=== PATIENT | male | born 1955 | race Caucasian/White ===

== ENCOUNTER → 2021-11-04 | Outpatient (CLI) | payer MEDICARE ==
[~2021-11-04] MED LIST: AMLODIPINE BESYL5 MG PO; HEARTBURN RELIE20 MG PO; HYDROCODONE-AC1 EAC1 PO; K-TAB10 MEQ PO; LASIX20 MG PO; LOPRESSOR25 MG NG; METOPROLOL SUCC50 M1 PO; NATURE'S BLEND F1 MG PO; PRAVASTATIN SOD20 MG PO; PREDNISONE10 MG PO; VITAMIN D350 MC3 PO
== END | disposition home or self-care (01) ==
LOC: RAD 13:27
PROVIDERS: ATTEND Family Medicine
DX: S22.32XA Fracture of one rib, left side, initial encounter for closed fracture (principal); X58.XXXA Exposure to other specified factors, initial encounter; Y93.89 Activity, other specified; Y92.89 Other specified places as the place of occurrence of the external cause; Y99.8 Other external cause status

== ENCOUNTER → 2022-09-16 | Outpatient (CLI) | payer OTHER, MEDICAID ==
[~2022-09-16] MED LIST changes: +BUDESONIDE0.5 MG/2 M NEB; +CIPROFLOXACIN500 M4 PO; +Ipratropium Brom3 ML NEB; +MUCINEX ER600 MG PO; +PANTOPRAZOLE SO40 MG PO; +PERFOROMIS20 MCG/2 M NEB; +PREDNISONE5 MG PO; +PROPOFOL10 MG/1 ML IV; +Protonix IV; +SOLU-MEDRO40 MG/1 ML IV; +ST. JOSEPH ASPI81 MG PO; +VITAMIN E180 M1 PO; +ZITHROMAX TRI-500 M1 PO
== END | disposition home or self-care (01) ==
LOC: RAD 14:54
PROVIDERS: ATTEND Internal Medicine
DX: M16.12 Unilateral primary osteoarthritis, left hip (principal); M47.817 Spondylosis without myelopathy or radiculopathy, lumbosacral region

== ENCOUNTER → 2023-03-15 | Outpatient (CLI) | payer OTHER, MEDICAID | END | disposition home or self-care (01) | LOC: CT 10:53 | PROVIDERS: ATTEND Internal Medicine Critical Care Medicine | DX: J44.9 Chronic obstructive pulmonary disease, unspecified (principal); Z87.891 Personal history of nicotine dependence ==

== ENCOUNTER 2023-04-05 17:31 | Inpatient (IN) | payer OTHER ==
[~2023-04-05] VITALS: Ht 167.6 cm; Wt 96.2 kg
[2023-04-05 17:45] VITALS: BP 158/73
[2023-04-05 17:46] LABS: HEMATOCRIT 45.2 % (42.0-52.0); MEAN CELL VOLUME 92.4 fl (80.0-94.0); MEAN CORPUSCULAR HGB 27.4 pg (27.0-31.0); MEAN CORPUSCULAR HGB CONC 29.6 g/dl (33.0-37.0); MEAN PLATELET VOLUME 9.2 fl (9.6-12.3); PLATELET COUNT AUTOMATED 229 10*3/uL (130-400); RED BLOOD COUNT 4.89 10*6/uL (4.50-5.90); RED CELL DISTRI WIDTH 14.6 % (0-14.5)
[2023-04-05 17:48] LABS: MANUAL DIFF REFLEX YES
[2023-04-05 17:57] LABS: ACT PARTIAL THROMBO TIME 28.8 SECONDS (20.0-32.1)
[2023-04-05 18:07] LABS: BASOPHILS 1 % (0-1); PLATELET SUFFICIENCY NORMAL (NORMAL); TOTAL CELLS COUNTED 100 #CELLS
[2023-04-05 18:08] LABS: STOMATOCYTE FEW
[2023-04-05 18:09] LABS: ALKALINE PHOSPHATASE 89 U/L (46-116); BUN 15 mg/dl (9-23); CHLORIDE 98 mmol/L (98-107); LIPASE 27 U/L (12-53); POTASSIUM 4.8 mmol/L (3.4-5.1); SGPT/ALT 23 U/L (5-49); TOTAL PROTEIN 7.5 gm/dL (6.0-8.0)
[2023-04-05] MEDS ORDERED: MULTIVITAMIN1 EACH PO (19:09)
[2023-04-05] MEDS ORDERED: FOLIC ACID0.8 M1 PO (19:15)
[2023-04-05] MEDS ORDERED: VITAMIN E100 UNI1 PO (19:16)
[2023-04-05] MEDS ORDERED: DICYCLOMINE HYD20 MG PO (19:17)
[2023-04-05] MEDS ORDERED: ASPIRIN81 M1 PO (19:17)
[2023-04-05 19:35] VITALS: BP 154/100
[2023-04-05 20:00] VITALS: BP 153/94
[2023-04-06] VITALS (10 sets, daily range): BP systolic 109–154; BP diastolic 44–78
[2023-04-06 04:12] LABS: HEMATOCRIT 41.1 % (42.0-52.0); MEAN CELL VOLUME 91.9 fl (80.0-94.0); MEAN CORPUSCULAR HGB CONC 30.4 g/dl (33.0-37.0); MEAN PLATELET VOLUME 9.7 fl (9.6-12.3); PLATELET COUNT AUTOMATED 194 10*3/uL (130-400); RED BLOOD COUNT 4.47 10*6/uL (4.50-5.90); RED CELL DISTRI WIDTH 14.6 % (0-14.5); WHITE BLOOD COUNT 9.8 10*3/uL (4.8-10.8)
[2023-04-06 04:13] LABS: MANUAL DIFF REFLEX YES
[2023-04-06 04:43] LABS: ALKALINE PHOSPHATASE 73 U/L (46-116); BUN 15 mg/dl (9-23); CHLORIDE 101 mmol/L (98-107); CHOLESTEROL 263 mg/dL (<200); LDL CHOLESTEROL 187 mg/dL (9-159); POTASSIUM 5.2 mmol/L (3.4-5.1); SGPT/ALT 23 U/L (5-49); TOTAL PROTEIN 6.5 gm/dL (6.0-8.0); TRIGLYCERIDES 102 mg/dl (<150)
[2023-04-06 04:48] LABS: PLATELET SUFFICIENCY NORMAL (NORMAL); TOTAL CELLS COUNTED 100 #CELLS
[2023-04-07] VITALS: BP 134/57
[2023-04-07 06:31] LABS: BUN 20 mg/dl (9-23); CHLORIDE 100 mmol/L (98-107); POTASSIUM 4.8 mmol/L (3.4-5.1)
[2023-04-07 06:42] LABS: BASO % 0.1 % (0.0-1.0); EOS % 0.1 % (1.0-4.0); HEMATOCRIT 37.8 % (42.0-52.0); LYMPH # 0.4 10*3/uL (1.3-4.4); LYMPH % 2.8 % (27.0-41.0); MEAN CELL VOLUME 93.1 fl (80.0-94.0); MEAN CORPUSCULAR HGB 27.6 pg (27.0-31.0); MEAN CORPUSCULAR HGB CONC 29.6 g/dl (33.0-37.0); MEAN PLATELET VOLUME 9.9 fl (9.6-12.3); MONO # 0.9 10*3/uL (0.1-1.0); MONO % 7.1 % (3.0-9.0); NEUT # 11.9 10*3/uL (2.3-7.9); NEUT % 89.4 % (47.0-73.0); PLATELET COUNT AUTOMATED 223 10*3/uL (130-400); RED BLOOD COUNT 4.06 10*6/uL (4.50-5.90); RED CELL DISTRI WIDTH 14.7 % (0-14.5); WHITE BLOOD COUNT 13.3 10*3/uL (4.8-10.8)
[2023-04-07 08:00] VITALS: BP 156/66
[2023-04-07 12:00] VITALS: BP 168/74
[2023-04-07 16:00] VITALS: BP 169/67
[2023-04-07 20:00] VITALS: BP 172/77
[2023-04-08] VITALS: BP 137/68
[2023-04-08 06:46] LABS: BASO % 0.1 % (0.0-1.0); LYMPH # 0.4 10*3/uL (1.3-4.4); LYMPH % 3.2 % (27.0-41.0); MEAN CELL VOLUME 93.4 fl (80.0-94.0); MEAN CORPUSCULAR HGB 27.6 pg (27.0-31.0); MEAN CORPUSCULAR HGB CONC 29.5 g/dl (33.0-37.0); MEAN PLATELET VOLUME 9.5 fl (9.6-12.3); MONO % 7.5 % (3.0-9.0); NEUT # 12.1 10*3/uL (2.3-7.9); NEUT % 88.7 % (47.0-73.0); PLATELET COUNT AUTOMATED 245 10*3/uL (130-400); RED BLOOD COUNT 4.39 10*6/uL (4.50-5.90); WHITE BLOOD COUNT 13.7 10*3/uL (4.8-10.8)
[2023-04-08 07:14] LABS: BUN 20 mg/dl (9-23); CHLORIDE 96 mmol/L (98-107); POTASSIUM 4.9 mmol/L (3.4-5.1)
[2023-04-08 08:00] VITALS: BP 141/87
[2023-04-08 12:00] VITALS: BP 103/67
[2023-04-08 16:00] VITALS: BP 132/99
[2023-04-08 20:00] VITALS: BP 149/79
[2023-04-09 00:33] VITALS: BP 148/84
[2023-04-09 06:11] LABS: BUN 21 mg/dl (9-23); CHLORIDE 95 mmol/L (98-107); POTASSIUM 5.1 mmol/L (3.4-5.1)
[2023-04-09 06:16] LABS: BASO % 0.2 % (0.0-1.0); EOS % 0.1 % (1.0-4.0); HEMATOCRIT 41.1 % (42.0-52.0); LYMPH # 0.6 10*3/uL (1.3-4.4); LYMPH % 4.4 % (27.0-41.0); MEAN CELL VOLUME 91.3 fl (80.0-94.0); MEAN CORPUSCULAR HGB 27.3 pg (27.0-31.0); MEAN CORPUSCULAR HGB CONC 29.9 g/dl (33.0-37.0); MEAN PLATELET VOLUME 10.1 fl (9.6-12.3); MONO # 1.2 10*3/uL (0.1-1.0); MONO % 9.1 % (3.0-9.0); NEUT # 10.8 10*3/uL (2.3-7.9); NEUT % 85.6 % (47.0-73.0); PLATELET COUNT AUTOMATED 270 10*3/uL (130-400); RED CELL DISTRI WIDTH 14.9 % (0-14.5); WHITE BLOOD COUNT 12.7 10*3/uL (4.8-10.8)
[2023-04-09 08:00] VITALS: BP 179/80
[2023-04-09 16:00] VITALS: BP 152/67
[2023-04-09 20:29] VITALS: BP 151/73
[2023-04-10] VITALS: BP 132/53
[2023-04-10 06:51] LABS: BASO % 0.1 % (0.0-1.0); EOS % 0.1 % (1.0-4.0); HEMATOCRIT 44.5 % (42.0-52.0); LYMPH # 0.7 10*3/uL (1.3-4.4); LYMPH % 6.7 % (27.0-41.0); MEAN CELL VOLUME 93.3 fl (80.0-94.0); MEAN CORPUSCULAR HGB 27.9 pg (27.0-31.0); MEAN CORPUSCULAR HGB CONC 29.9 g/dl (33.0-37.0); MEAN PLATELET VOLUME 9.9 fl (9.6-12.3); MONO # 1.4 10*3/uL (0.1-1.0); MONO % 12.3 % (3.0-9.0); NEUT # 8.8 10*3/uL (2.3-7.9); NEUT % 80.4 % (47.0-73.0); PLATELET COUNT AUTOMATED 291 10*3/uL (130-400); RED BLOOD COUNT 4.77 10*6/uL (4.50-5.90); RED CELL DISTRI WIDTH 14.6 % (0-14.5)
[2023-04-10 07:12] LABS: BUN 20 mg/dl (9-23); CHLORIDE 99 mmol/L (98-107); POTASSIUM 4.5 mmol/L (3.4-5.1)
[2023-04-10 08:00] VITALS: BP 142/80
[2023-04-10 12:00] VITALS: BP 138/72
[2023-04-10 16:00] VITALS: BP 146/79
[2023-04-10 20:00] VITALS: BP 150/80
[2023-04-11] VITALS: BP 146/76
[2023-04-11 06:45] LABS: BASO % 0.1 % (0.0-1.0); EOS % 0.1 % (1.0-4.0); HEMATOCRIT 43.5 % (42.0-52.0); LYMPH # 0.9 10*3/uL (1.3-4.4); LYMPH % 6.8 % (27.0-41.0); MEAN CELL VOLUME 91.8 fl (80.0-94.0); MEAN CORPUSCULAR HGB 27.2 pg (27.0-31.0); MEAN CORPUSCULAR HGB CONC 29.7 g/dl (33.0-37.0); MEAN PLATELET VOLUME 9.8 fl (9.6-12.3); MONO # 1.4 10*3/uL (0.1-1.0); MONO % 10.4 % (3.0-9.0); NEUT # 10.6 10*3/uL (2.3-7.9); NEUT % 82.1 % (47.0-73.0); PLATELET COUNT AUTOMATED 322 10*3/uL (130-400); RED BLOOD COUNT 4.74 10*6/uL (4.50-5.90); RED CELL DISTRI WIDTH 14.4 % (0-14.5)
[2023-04-11 07:08] LABS: BUN 23 mg/dl (9-23); CHLORIDE 101 mmol/L (98-107); POTASSIUM 4.6 mmol/L (3.4-5.1)
[2023-04-11 08:00] VITALS: BP 135/70
[2023-04-11] MEDS ORDERED: ATORVASTATIN CA40 M1 PO ×3 (11:38→15:06)
[2023-04-11] MEDS ORDERED: LEVOFLOXACIN750 M2 PO ×3 (11:38→15:06)
[2023-04-11] MEDS ORDERED: MUCUS RELIEF600 MG PO ×3 (11:38→15:06)
[2023-04-11] MEDS ORDERED: ACETAZOLAMIDE250 MG PO ×3 (11:38→15:06)
[2023-04-11] MEDS ORDERED: PREDNISONE10 MG PO ×3 (11:38→15:06)
[2023-04-11 12:00] VITALS: BP 101/64
== END 2023-04-11 15:05 | disposition home or self-care (01) | DRG 871 ==
LOC: ED 17:31 → EDHOLD 18:34 → 4E 18:34
PROVIDERS: Emergency Medicine; Internal Medicine; Registered Nurse; Student in an Organized Health Care Education/Training Program; ADMIT Internal Medicine; ATTEND Internal Medicine
PROC: 5A09457 Assistance with Respiratory Ventilation, 24-96 Consecutive Hours, Continuous Positive Airway Pressure (ICD-10-PCS; 2023-04-05)
PROC: XW033E5 Introduction of Remdesivir Anti-infective into Peripheral Vein, Percutaneous Approach, New Technology Group 5 (ICD-10-PCS; principal; 2023-04-06)
PROC: 5A09357 Assistance with Respiratory Ventilation, Less than 24 Consecutive Hours, Continuous Positive Airway Pressure (ICD-10-PCS; 2023-04-08)
PROC: 5A09357 Assistance with Respiratory Ventilation, Less than 24 Consecutive Hours, Continuous Positive Airway Pressure (ICD-10-PCS; 2023-04-09)
PROC: 5A09357 Assistance with Respiratory Ventilation, Less than 24 Consecutive Hours, Continuous Positive Airway Pressure (ICD-10-PCS; 2023-04-10)
DX: A41.9 Sepsis, unspecified organism (principal); J15.69 Pneumonia due to other Gram-negative bacteria; J96.21 Acute and chronic respiratory failure with hypoxia; U07.1 COVID-19; I50.32 Chronic diastolic (congestive) heart failure; J44.0 Chronic obstructive pulmonary disease with (acute) lower respiratory infection; J44.1 Chronic obstructive pulmonary disease with (acute) exacerbation; E07.1 Dyshormogenetic goiter; R65.20 Severe sepsis without septic shock; K21.9 Gastro-esophageal reflux disease without esophagitis; D64.9 Anemia, unspecified; E05.90 Thyrotoxicosis, unspecified without thyrotoxic crisis or storm; E87.5 Hyperkalemia; E11.65 Type 2 diabetes mellitus with hyperglycemia; K76.0 Fatty (change of) liver, not elsewhere classified; Z88.6 Allergy status to analgesic agent; Z88.8 Allergy status to other drugs, medicaments and biological substances; Z82.49 Family history of ischemic heart disease and other diseases of the circulatory system; Z86.73 Personal history of transient ischemic attack (TIA), and cerebral infarction without residual deficits

== ENCOUNTER 2023-08-11 13:32 | Emergency (ER) | payer OTHER ==
[~2023-08-11] VITALS: Ht 167.6 cm; Wt 95.3 kg
[~2023-08-11 13:32] MED LIST changes: +ACETAZOLAMIDE250 MG PO; +AMOX-CLAV 875-1 EACH PO; +ASPIRIN81 M1 PO; +ATORVASTATIN CA40 M1 PO; +ATORVASTATIN CA80 M1 PO; +DICYCLOMINE HYD20 MG PO; +FOLIC ACID0.8 M1 PO; +LEVOFLOXACIN750 M2 PO; +MIRTAZAPINE15 M2 PO; +MUCUS RELIEF600 MG PO; +MULTIVITAMIN1 EACH PO; +NAMENDA-5 PO; +QUETIAPINE FUMA50 M1 PO; +RIVASTIGMINE1 EACH T; +TAMSULOSIN HCL0.4 MG PO; +TORSEMIDE20 MG PO; +VITAMIN E100 UNI1 PO
[2023-08-11] MEDS ORDERED: Activated Charcoal 120 ML BOT PO ONE (13:40)
[2023-08-11 13:54] LABS: HEMATOCRIT 41.6 % (42.0-52.0); MANUAL DIFF REFLEX YES; MEAN CELL VOLUME 93.3 fl (80.0-94.0); MEAN CORPUSCULAR HGB 28.3 pg (27.0-31.0); MEAN CORPUSCULAR HGB CONC 30.3 g/dl (33.0-37.0); MEAN PLATELET VOLUME 9.4 fl (9.6-12.3); PLATELET COUNT AUTOMATED 269 10*3/uL (130-400); RED BLOOD COUNT 4.46 10*6/uL (4.50-5.90); RED CELL DISTRI WIDTH 15.8 % (0-14.5); WHITE BLOOD COUNT 13.2 10*3/uL (4.8-10.8)
[2023-08-11 14:17] LABS: ACT PARTIAL THROMBO TIME 27.2 SECONDS (20.0-32.1); ALKALINE PHOSPHATASE 131 U/L (46-116); BUN 9 mg/dl (9-23); CHLORIDE 97 mmol/L (98-107); LIPASE 35 U/L (12-53); POTASSIUM 3.7 mmol/L (3.4-5.1); SGPT/ALT 23 U/L (5-49); TOTAL PROTEIN 7.2 gm/dL (6.0-8.0)
[2023-08-11 14:26] LABS: BASOPHILS 3 % (0-1); PLATELET SUFFICIENCY NORMAL (NORMAL); TOTAL CELLS COUNTED 100 #CELLS
[2023-08-11 14:27] LABS: OVALOCYTES FEW
[2023-08-11] MEDS ORDERED: SODIUM CHLORIDE 0.9% 1,000 ML IV ONE (14:30)
[2023-08-11 16:30] LABS: BILIRUBIN Negative (Negative); BLOOD Negative (Negative); CLARITY Cloudy (Clear); COLOR Yellow (Yellow); GLUCOSE Negative (Negative); KETONE Negative (Negative); LEUKO ESTERASE 2+ (Negative); NITRITE Negative (Negative); PH 5.5 (4.5-8.0); SPECIFIC GRAVITY >= 1.030 (1.001-1.030)
[2023-08-11] MEDS ORDERED: MEMANTINE HCL5 MG PO (16:32)
[2023-08-11] MEDS ORDERED: MIRTAZAPINE15 M1 SL (16:33)
[2023-08-11] MEDS ORDERED: HYDROCODONE-AC1 EAC1 PO (16:33)
[2023-08-11 16:39] LABS: URINE AMPHETAMINES Negative (1000ng/ml); URINE BARBITURATES Negative (200ng/ml); URINE BENZODIAZEPINES Negative (200ng/ml); URINE CANNABINOIDS (THC) Negative (50ng/ml); URINE COCAINE Negative (300ng/ml); URINE METHADONE Negative (300ng/ml); URINE OPIATES Positive (300ng/ml); URINE PHENCYCLIDINE Negative (25ng/ml)
[2023-08-11 16:41] LABS: BACTERIA 1+; RBC 0-2 rbc/hpf (0-2); WBC 21-30 wbc/hpf (0-5)
[2023-08-11] MEDS ORDERED: Albuterol Sulf/Ipratropium 3 ML VIAL NEB ONE (19:20)
== END 2023-08-11 22:01 | disposition home or self-care (01) ==
LOC: ED 13:32
PROVIDERS: Internal Medicine
DX: T39.1X1A Poisoning by 4-Aminophenol derivatives, accidental (unintentional), initial encounter (principal); R42 Dizziness and giddiness; J44.9 Chronic obstructive pulmonary disease, unspecified; Z99.81 Dependence on supplemental oxygen; Z88.8 Allergy status to other drugs, medicaments and biological substances; Z79.899 Other long term (current) drug therapy; Z79.2 Long term (current) use of antibiotics; Z79.82 Long term (current) use of aspirin; Z98.890 Other specified postprocedural states; Z90.89 Acquired absence of other organs; Z87.891 Personal history of nicotine dependence; Y92.89 Other specified places as the place of occurrence of the external cause

== ENCOUNTER 2024-01-01 20:00 | Emergency (ER) | payer OTHER ==
[~2024-01-01] VITALS: Wt 108.6 kg
[~2024-01-01 20:00] MED LIST changes: +MEMANTINE HCL5 MG PO; +MIRTAZAPINE15 M1 SL
[2024-01-01] MEDS ORDERED: EPINEPHrine Hydrochloride 1 MG,IV 1 EA in SODIUM CHLORIDE 0.9% 250 ML IV SCH (20:05)
[2024-01-01] MEDS ORDERED: EPINEPHrine Hydrochloride 1 MG/ML AMP ONE (20:20)
[2024-01-01] MEDS ORDERED: SODIUM CHLORIDE 0.9% 500 ML IV ONE ×2 (20:20→23:45)
[2024-01-01 21:02] LABS: HEMATOCRIT 39.5 % (42.0-52.0); MEAN CELL VOLUME 103.4 fl (80.0-94.0); MEAN CORPUSCULAR HGB CONC 27.1 g/dl (33.0-37.0); MEAN PLATELET VOLUME 10.1 fl (9.6-12.3); NUCLEATED RED BLOOD CELL 0.2 10*3/uL (0.0-0.0); NUCLEATED RED BLOOD CELL 1.7 % (0.0-0.0); PLATELET COUNT AUTOMATED 248 10*3/uL (130-400); RED BLOOD COUNT 3.82 10*6/uL (4.50-5.90); RED CELL DISTRI WIDTH 15.6 % (0-14.5); WHITE BLOOD COUNT 12.1 10*3/uL (4.8-10.8)
[2024-01-01 21:03] LABS: MANUAL DIFF REFLEX YES
[2024-01-01 21:19] LABS: POTASSIUM 3.8 mmol/L (3.4-5.1); TOTAL PROTEIN 5.9 gm/dL (6.0-8.0)
[2024-01-01 21:24] LABS: ATYPICAL LYMPHS 1 % (0-0); PLATELET SUFFICIENCY NORMAL (NORMAL); TOTAL CELLS COUNTED 100 #CELLS
[2024-01-01 21:25] LABS: OVALOCYTES FEW; POLYCHROMASIA SLIGHT; ROULEAUX SLIGHT
[2024-01-01] MEDS ORDERED: SODIUM CHLORIDE 0.9% 1,000 ML IV ONE (22:00)
== END 2024-01-02 03:00 | disposition short-term general hospital (02) ==
LOC: ED 20:00
PROVIDERS: Emergency Medicine
DX: I46.9 Cardiac arrest, cause unspecified (principal); R74.01 Elevation of levels of liver transaminase levels; E87.20 Acidosis, unspecified; Z88.8 Allergy status to other drugs, medicaments and biological substances; Z88.6 Allergy status to analgesic agent; J44.9 Chronic obstructive pulmonary disease, unspecified; I50.9 Heart failure, unspecified; F03.90 Unspecified dementia, unspecified severity, without behavioral disturbance, psychotic disturbance, mood disturbance, and anxiety; E11.65 Type 2 diabetes mellitus with hyperglycemia; D64.9 Anemia, unspecified; K21.9 Gastro-esophageal reflux disease without esophagitis; Z90.89 Acquired absence of other organs; Z98.890 Other specified postprocedural states; F17.200 Nicotine dependence, unspecified, uncomplicated